=== PATIENT | male | born 1950 | race Caucasian/White ===

== ENCOUNTER 2017-07-18 05:45 | Inpatient (IN) ==
[2017-07-12 15:57] LABS: Basophils % 0.5 % (0.0-0.8); Eosinophils # 0.2 10*3/uL (0.0-0.87); Eosinophils % 2.3 % (0.00-10.9); Hematocrit 40.4 VOL% (42.0-52.0); Hemoglobin 13.4 GM/DL (14.0-18.0); Immature Granulocytes % 0.6 %; Immature Granulocytes Absolute 0.05 #; Lymphocytes % 23.8 % (21.2-54.2); Mean Corpuscular HGB Conc 33.2 GM/DL (32-36); Mean Corpuscular Hemoglobin 32 PG (27-34); Mean Corpuscular Volume 96.4 FL (87-102); Mean Platelet Volume 10.8 FL (9.6-12.0); Monocytes % 11.7 % (1.7-12.7); Neutrophils % 61.1 % (38.7-73.9); Platelet Count 207 T/CUMM (130-400); Red Blood Count 4.19 MC/CUMM (3.8-5.5); Red Cell Distribution Width 13.1 % (9.3-17.3); White Blood Count 8.2 T/CUMM (4-12)
[2017-07-12 16:38] LABS: Albumin 3.9 G/DL (3.4-5.0); Bilirubin,Total 0.6 MG/DL (0.2-1.0); Calcium 9.2 MG/DL (8.5-10.1); Potassium 4.1 MMOL/L (3.5-5.1); Total Protein 7.2 G/DL (6.4-8.3)
[2017-07-18] MEDS ORDERED: ERTAPENEM 1,000 MG in SODIUM CHLORIDE 0.9% 100 ML IV ONE (06:00)
[2017-07-18] MEDS ORDERED: ALVIMOPAN 12 MG CAPSULE PO ONE (06:00)
[2017-07-18] MEDS ORDERED: ALVIMOPAN 12 MG CAPSULE ONE (06:00)
[2017-07-18] MEDS ORDERED: LACTATED RINGERS 1,000 ML IV SCH (06:00)
[2017-07-18] MEDS ORDERED: TISSUE ADHESIVE 1 EACH APPLICATOR TOP ONE (08:08)
[2017-07-18] MEDS ORDERED: DEXAMETHASONE 10 MG/1 ML VIAL ONE (10:38)
[2017-07-18] MEDS ORDERED: PROPOFOL 200 MG/20 ML VIAL IV ONE (10:38)
[2017-07-18] MEDS ORDERED: fentaNYL 100 MCG/2 ML VIAL ONE (10:38)
[2017-07-18] MEDS ORDERED: MIDAZOLAM 2 MG/2 ML VIAL ONE (10:38)
[2017-07-18] MEDS ORDERED: DESFLURANE 1 UNIT/15 MINUTE INH ONE (10:38)
[2017-07-18] MEDS ORDERED: ROCURONIUM 100 MG/10 ML VIAL IV ONE (10:39)
[2017-07-18] MEDS ORDERED: NEOSTIGMINE 10 MG/10 ML VIAL ONE (10:39)
[2017-07-18] MEDS ORDERED: GLYCOPYRROLATE 0.4 MG/2 ML VIAL ONE (10:39)
[2017-07-18] MEDS ORDERED: ACETAMINOPHEN 1,000 MG/100 ML VIAL IV ONE (10:39)
[2017-07-18] MEDS ORDERED: LACTATED RINGERS 2,000 ML IV ONE (10:39)
[2017-07-18] MEDS ORDERED: ONDANSETRON 4 MG/2 ML VIAL ONE (10:39)
[2017-07-18] MEDS ORDERED: ONDANSETRON 4 MG/2 ML VIAL IV PRN ×2 (12:37→13:50)
[2017-07-18] MEDS ORDERED: HYDROmorphone 2 MG/1 ML VIAL IV PRN ×2 (12:37→13:50)
[2017-07-18] MEDS ORDERED: PROMETHAZINE 25 MG/1 ML VIAL IM PRN (13:50)
[2017-07-18] MEDS: KETOROLAC 15 MG/1 ML VIAL IV SCH ×2 (14:24→20:15)
[2017-07-18] MEDS ORDERED: diphenhydrAMINE 50 MG/1 ML VIAL IV PRN (17:38)
[2017-07-18] MEDS: LACTATED RINGERS 1,000 ML IV SCH ×2 (18:21→23:43)
[2017-07-18] MEDS: ALVIMOPAN 12 MG CAPSULE PO SCH (20:14)
[2017-07-18 22:07] LABS: Apearance,Urine CLEAR (Clear); Bilirubin,Urine Negative (Negative); Blood, Urine Negative (Negative); Glucose,Urine (UA) 50 mg/dL (Negative); Ketones,Urine Negative (Negative); Mucus,Urine Occasional /LPF (Occasional); Nitrite,Urine Negative (Negative); Protein,Urine Negative; RBC,Urine <1 /HPF (0-4); Urine Color Yellow (Yellow); Urine Specific Gravity 1.012 (1.001-1.035); Urine Urobilinogen < 2.0 EU/DL (0.2-1.0); WBC,Urine 2 /HPF (0-6)
[2017-07-19] MEDS: KETOROLAC 15 MG/1 ML VIAL IV SCH ×4 (01:51→21:24)
[2017-07-19 06:23] LABS: Basophils % 0.1 % (0.0-0.8); Eosinophils % 0.1 % (0.00-10.9); Hemoglobin 12.9 GM/DL (14.0-18.0); Immature Granulocytes % 0.6 %; Immature Granulocytes Absolute 0.08 #; Lymphocytes # 1.2 10*3/uL (1.4-4.0); Lymphocytes % 8.7 % (21.2-54.2); Mean Corpuscular HGB Conc 33.1 GM/DL (32-36); Mean Corpuscular Hemoglobin 32 PG (27-34); Mean Corpuscular Volume 96.1 FL (87-102); Mean Platelet Volume 11.1 FL (9.6-12.0); Monocytes # 1.3 10*3/uL (0.11-0.8); Monocytes % 9.1 % (1.7-12.7); Neutrophils # 11.5 10*3/uL (1.4-7.4); Neutrophils % 81.4 % (38.7-73.9); Platelet Count 205 T/CUMM (130-400); Red Blood Count 4.06 MC/CUMM (3.8-5.5); Red Cell Distribution Width 12.8 % (9.3-17.3); White Blood Count 14.1 T/CUMM (4-12)
[2017-07-19 06:54] LABS: Calcium 9.3 MG/DL (8.5-10.1); Potassium 4.8 MMOL/L (3.5-5.1)
[2017-07-19] MEDS: MULTIVITAMIN (CENTRUM) TABLET PO SCH (08:53)
[2017-07-19] MEDS: TAMSULOSIN 0.4 MG CAPSULE PO SCH ×2 (08:53→21:24)
[2017-07-19] MEDS: amLODIPine 10 MG TABLET PO SCH (08:53)
[2017-07-19] MEDS: OMEGA 3 ACID ETHYL ESTERS 1 GM CAPSULE PO SCH (08:54)
[2017-07-19] MEDS: ENOXAPARIN 40 MG/0.4 ML SYRINGE SUBCUT SCH (08:54)
[2017-07-19] MEDS: ALVIMOPAN 12 MG CAPSULE PO SCH ×2 (08:54→21:23)
[2017-07-19] MEDS ORDERED: PANTOPRAZOLE 40 MG VIAL IV SCH (09:00)
[2017-07-19] MEDS: LACTATED RINGERS 1,000 ML IV SCH (15:08)
[2017-07-20] MEDS: KETOROLAC 15 MG/1 ML VIAL IV SCH ×2 (03:32→09:08)
[2017-07-20] MEDS ORDERED: PANTOPRAZOLE 40 MG TABLET PO SCH (09:00)
[2017-07-20] MEDS: TAMSULOSIN 0.4 MG CAPSULE PO SCH (09:04)
[2017-07-20] MEDS: ALVIMOPAN 12 MG CAPSULE PO SCH (09:04)
[2017-07-20] MEDS: MULTIVITAMIN (CENTRUM) TABLET PO SCH (09:04)
[2017-07-20] MEDS: OMEGA 3 ACID ETHYL ESTERS 1 GM CAPSULE PO SCH (09:04)
[2017-07-20] MEDS: amLODIPine 10 MG TABLET PO SCH (09:04)
[2017-07-20] MEDS: ENOXAPARIN 40 MG/0.4 ML SYRINGE SUBCUT SCH (09:04)
[2017-07-20 12:37] VITALS: BP 124/74
== END 2017-07-20 14:15 | disposition home or self-care (01) | DRG 331 ==
LOC: N.OR 05:45 → N.SDSINP 05:46 → N.4E 10:44
PROVIDERS: ADMIT Surgery; ATTEND Surgery